=== PATIENT | male | born 1990 | race Caucasian/White ===

== ENCOUNTER 2025-09-26 20:33 | Emergency (ER) | payer SELFPAY ==
[~2025-09-26] VITALS: Ht 175.3 cm; Wt 109.0 kg
[2025-09-26 20:52] VITALS: BP 119/77; PULSE 88; RESP 18; TEMP 37.1; O2SAT 100
== END 2025-09-26 21:55 | disposition left against medical advice (07) ==
LOC: ER 20:33
DX: F10.129 Alcohol abuse with intoxication, unspecified (principal); I10 Essential (primary) hypertension; Y90.9 Presence of alcohol in blood, level not specified
CPT/HCPCS: 99281